=== PATIENT | female | born 1970 | race Caucasian/White ===

== ENCOUNTER 2018-04-05 20:12 | Emergency (ER) | payer SELFPAY, OTHER | END 2018-04-05 20:35 | disposition left against medical advice (07) | LOC: FTE 20:12 | DX: Z53.21 Procedure and treatment not carried out due to patient leaving prior to being seen by health care provider (principal) ==

== ENCOUNTER 2019-06-04 21:01 | Emergency (ER) | payer OTHER | END 2019-06-04 22:09 | disposition home or self-care (01) | LOC: E/R 21:01 | DX: T63.441A Toxic effect of venom of bees, accidental (unintentional), initial encounter (principal); I10 Essential (primary) hypertension; E03.9 Hypothyroidism, unspecified; Z79.82 Long term (current) use of aspirin | CPT/HCPCS: 99282; Z7502 ==